=== PATIENT | male | born 1940 | race Caucasian/White ===

== ENCOUNTER → 2020-12-28 | Day surgery (SDC) | payer MEDICARE ==
[2020-12-26 11:57] LABS: BASOPHILS % 0.4 % (0.0-1.0); EOSINOPHILS # (AUTO) 0.1 (0.0-0.4); EOSINOPHILS % 1.5 % (0.0-6.0); HEMATOCRIT 41.6 % (38.2-49.6); HEMOGLOBIN 13.8 g/dL (14.0-18.0); LYMPHOCYTES # (AUTO) 1.4 (1.0-3.2); LYMPHOCYTES % 16.7 % (18.0-39.1); MEAN CORPUSCULAR HGB CONC 33.2 g/dL (31-35); MEAN CORPUSCULAR VOLUME 90.4 fL (81-99); MONOCYTES # (AUTO) 0.8 (0.2-0.8); MONOCYTES % 9.9 % (4.4-11.3); NEUTROPHILS # (AUTO) 5.8 (2.1-6.9); PLATELET COUNT 143 x10e3/uL (140-360); RED CELL DISTRIBUTION WIDTH 14.1 % (11.7-14.4)
[~2020-12-28] MED LIST: ASPIRIN81 MG PO; BENICAR20 MG PO; BUPIVACAINE 0.25% 30ML SDV ONE; BUPIVACAINE HCL 0.5% INJ 30 ML VIAL INJ ONE; CLINDAMYCIN 600MG / 50ML 50 ML IV ONE; HYDRALAZINE HCL25 MG PO; HYDROCODON-ACE1 EA11 PO; LEVALBUTER0.63 MG/3 NEB; LIDOCAINE HCL 0.5% LOCAL INJ 50 ML VIAL INJ ONE; LIPITOR10 MG PO; MAGNESIUM OXID400 MG PO; METOPROLOL SUCC50 MG PO; MONTELUKAST SOD10 MG PO; MUPIROCIN 2% OINT 22 GM TUBE ONE; PANTOPRAZOLE SO40 MG PO; PLAVIX75 MG PO; PRO AIR INH; STIOLTO RESPIMAT4 GM INH; SYMBICORT 80-10.2 GM INH; TRADJENTA5 MG PO
[2020-12-28 08:30] VITALS: BP 156/78
== END | disposition home or self-care (01) ==
LOC: OR 05:34
PROVIDERS: ATTEND Plastic Surgery
DX: G56.02 Carpal tunnel syndrome, left upper limb (principal); M65.832 Other synovitis and tenosynovitis, left forearm; E11.9 Type 2 diabetes mellitus without complications; I25.810 Atherosclerosis of coronary artery bypass graft(s) without angina pectoris; I10 Essential (primary) hypertension; Z88.6 Allergy status to analgesic agent; Z88.0 Allergy status to penicillin; Z88.2 Allergy status to sulfonamides; Z88.1 Allergy status to other antibiotic agents; Z01.810 Encounter for preprocedural cardiovascular examination; Z01.812 Encounter for preprocedural laboratory examination; Z20.822 Contact with and (suspected) exposure to COVID-19; Z79.02 Long term (current) use of antithrombotics/antiplatelets; Z79.82 Long term (current) use of aspirin; Z95.1 Presence of aortocoronary bypass graft
CPT/HCPCS: 25115; 36415; 82948; 85025; 93005; J2001; U0002